=== PATIENT | male | born 1970 | race Caucasian/White ===

== ENCOUNTER 2024-07-06 18:51 | Inpatient (IN) | payer MEDICAID, OTHER ==
[~2024-07-06] VITALS: Ht 175.3 cm; Wt 100.6 kg
--- NOTE | 2024-07-06 19:10 | ED.PDOC ---
HPI Comments 54 y.o male with PMH of NJ, HTN, CVA, hyperlipidemia, CHF, and seizures, presents to the ED for a chief complaint of left sided chest pain radiating to his left arm and back, associated with SOB that started one hour prior to arrival. Patient reports pain presented sitting in the bus, described as sharp, constant, and rating a 10/10 on the pain scale. Patient mentions pain is similar to pain when he had an NJ. EMS reports patient took his own 324mg ASA prior to their arrival but had no relief. Patient is allergic to NTG so no medication was given en route. He denies any nausea, vomiting, diarrhea, fever, chills, leg swelling. No substance, alcohol or tobacco use reported. Time Seen by MD: 18:53 Reviewed Notes: Nurses Notes, Member Of Technical Staff Notes, Medications, Allergies Allergies: Coded Allergies: Acetaminophen (Verified Adverse Reaction, Severe, 07/06/24) Ibuprofen (Verified Adverse Reaction, Severe, 07/06/24) Ketorolac Tromethamine (Verified Adverse Reaction, Severe, 07/06/24) Nitroglycerin (Verified Adverse Reaction, Severe, 07/06/24) Oxycodone (Verified Adverse Reaction, Severe, 07/06/24) Penicillins (Verified Adverse Reaction, Severe, 07/06/24) Tramadol (Verified Adverse Reaction, Severe, 07/06/24) Information Source: Patient, Emergency Med Personnel Mode of Arrival: EMS Severity: Moderate Timing: Hours (1) Duration: Since onset Prehospital treatment: 12 Lead EKG, Predatory Game Hunter Location: Chest (L) Radiation: Arm (L) Quality: Sharp Onset: At Rest Cardiac Risk Factors: Hyperlipidemia, HTN PE Risk Factors: None History of: NJ Modifying Factors: Nothing Associated Signs and Symptoms: SOB Past Medical History PAST MEDICAL HISTORY: CHF, CVA, High Lipids, HTN, NJ, Seizures Surgical History: CABG, Pacemaker, PTCA Family History Family History: Family hx of heart diane Social History Smoker: Non-Smoker Alcohol: Denies ETOH Use Drugs: Denies Drug Use Lives In: Home Constitutional: denies: chills, diaphoresis, fatigue, fever, malaise, sweats, weakness, others EENTM: denies: blurred vision, double vision, ear bleeding, ear discharge, ear drainage, ear pain, ear ringing, eye pain, eye redness, hearing loss, mouth pain, mouth swelling, nasal discharge, nose bleeding, nose congestion, nose pain, photophobia, tearing, throat pain, throat swelling, voice changes, others Respiratory: reports: SOB at rest, shortness of breath, SOB with excertion; denies: cough, hemoptysis, orthopnea, stridor, wheezing, others Cardiovascular: reports: chest pain, left arm pain; denies: dizzy spells, diaphoresis, Dyspnea on exertion, edema, irregular heart beat, lightheadedness, palpitations, PND, syncope, others Gastrointestinal: denies: abdomen distended, abdominal pain, blood streaked bowels, constipated, diarrhea, dysphagia, difficulty swallowing, hematemesis, melena, nausea, poor appetite, poor fluid intake, rectal bleeding, rectal pain, vomiting, others Genitourinary: denies: burning, dysuria, flank pain, frequency, hematuria, incontinence, penile discharge, penile sore, pain, testicle pain, testicle swelling, urgency, others Neurological: denies: dizziness, fainting, headache, left sided numbness, left sided weakness, numbness, paresthesia, pre-existing deficit, right sided numbness, right sided weakness, seizure, speech problems, tingling, tremors, weakness, others Musculoskeletal: reports: back pain; denies: gout, joint pain, joint swelling, muscle pain, muscle stiffness, neck pain, others Integumetry: denies: bruises, change in color, change in hair/nails, dryness, laceration, lesions, lumps, rash, wounds, others Allergic/Immunocompromised: denies: Difficulty Healing, Frequent Infections, Hives, Itching, others Hematologic/Lymphatic: denies: anemia, blood clots, easy bleeding, easy bruising, swollen glands, others Endocrine: denies: excessive hunger, excessive sweating, excessive thirst, excessive urination, flushing, intolerance to cold, intolerance to heat, unexplained weight gain, unexplained weight loss, others Psychiatric: denies: anxiety, bipolar disorder, depression, hopeless, panic disorder, schizophrenia, sleepless, suicidal, others All Other Systems: Reviewed and Negative Physical Exam General Appearance: Moderate Distress HEENT: Normal ENT Inspection, Pharynx Normal, TMs Normal Neck: Full Range of Motion, Non-Tender, Normal, Normal Inspection Respiratory: Chest Non-Tender, Lungs Clear, No Accessory Muscle Use, No Respiratory Distress, Normal Breath Sounds Cardiovascular: No Edema, No JVD, No Murmur, No Gallop, Normal Peripheral Pulses, Regular Rate/Rhythm Breast Exam: Deferred Gastrointestinal: No Organomegaly, Non Tender, No Pulsatile Mass, Normal Bowel Sounds, Soft Genitalia: Deferred Pelvic: Deferred Rectal: Deferred Extremities: No calf tenderness, Normal capillary refill, Normal inspection, Normal range of motion, Non-tender, No pedal edema Musculoskeletal : Apperance: Normal Neurologic: Alert, red mud thickener operator II-XII nml as Tested, No Motor Deficits, Normal Affect, Normal Mood, No Sensory Deficits Cerebellar Function: Normal Reflexes: Normal Skin: Dry, Normal Color, Warm Lymphatic: No Adenopathy EKG EKG : Pulse Rate (adult): 74 Cardiac Rhythm: NSR Was a procedure done? Was a procedure done?: No CP Differential Dx Differential Diagnosis: NJ Differential Diagnosis: Angina, Chest Wall Pain, Cholelithiasis, Costochondritis, Gastritis, Myocardial Infarction, Pericarditis, Pulmonary Embolus X-Ray, Labs, Meds, VS Vital Signs Date Time Temp Pulse Resp B/P (MAP) Pulse Ox O2 Delivery O2 Flow Rate FiO2 07/06/24 21:22 71 13 132/78 07/06/24 20:34 72 16 138/43 07/06/24 20:04 73 17 145/91 07/06/24 19:54 72 07/06/24 19:45 73 17 145/91 (109) 97 07/06/24 19:45 73 17 97 Room Air* 0 21 07/06/24 19:12 98.5 77 18 145/95 (112) 96 07/06/24 19:10 74 07/06/24 18:52 74 Lab Test 07/06/24 21:04 07/06/24 20:01 07/06/24 19:14 Range/Units Urine Color Pending Urine Clarity Pending Urine pH Pending Urine Specific [place] Pending Urine Protein Pending Urine Ketones Pending Urine Blood Pending Urine Nitrite Pending Urine Bilirubin Pending Urine Urobilinogen Pending Urine Leukocyte Esterase Pending Urine RBC Pending Urine WBC Pending Urine Squamous Epithelial Cells Pending Urine Bacteria Pending Urine Glucose Pending Troponin I High Sensitivity 5 4 </=54 ng/L White Blood Count 4.8 4.4-10.8 10^3/uL Red Blood Count 4.75 4.5-5.90 10^6/uL Hemoglobin 11.1 L 13.5-17.5 g/dL Hematocrit 35.1 L 41.0-53.0 % Mean Corpuscular Volume 73.9 L 80.0-100.0 fL Mean Corpuscular Hemoglobin 23.4 L 28.0-32.0 pg Mean Corpuscular Hemoglobin Concent 31.7 L 32.0-36.0 g/dL Red Cell Distribution Width 19.7 H 11.8-14.3 % Platelet Count 208 140-450 10^3/uL Mean Platelet Volume 7.3 6.9-10.8 fL Neutrophils (%) (Auto) 61.9 37.0-80.0 % Lymphocytes (%) (Auto) 23.3 10.0-50.0 % Monocytes (%) (Auto) 11.1 0.0-12.0 % Eosinophils (%) (Auto) 3.1 0.0-7.0 % Basophils (%) (Auto) 0.6 0.0-2.0 % Neutrophils # (Auto) 3.0 1.6-8.6 10 ^3/uL Lymphocytes # (Auto) 1.1 0.4-5.4 10 ^3/uL Monocytes # (Auto) 0.5 0-1.3 10 ^3/uL Eosinophils # (Auto) 0.1 0-0.8 10 ^3/uL Basophils # (Auto) 0 0-0.2 10 ^3/uL Nucleated Red Blood Cells 0.2 % Sodium Level 139 136-145 mmol/L Potassium Level 4.2 3.5-5.1 mmol/L Chloride Level 106 98-107 mmol/L Carbon Dioxide Level 25 20-31 mmol/L Anion Gap 8 5-15 Blood Urea Nitrogen 13 9-23 mg/dL Creatinine 0.94 0.700-1.30 mg/dL Glomerular Filtration Rate Calc 97 >90 mL/min BUN/Creatinine Ratio 13.8 10.0-20.0 Serum Glucose 110 H 74-106 mg/dL Calcium Level 9.5 8.7-10.4 mg/dL Current Medications Medications (Trade) Dose Ordered Sig/[place] Route Start Time Stop Time Status Last Admin Morphine Sulfate 4 mg ONCE ONCE IV 07/06/24 19:00 07/06/24 19:03 DC 11/1/24 20:04 Ondansetron HCl (Zofran) 4 mg ONCE ONCE IV 07/06/24 19:00 07/06/24 19:03 DC 07/06/24 20:04 Morphine Sulfate 2 mg ONCE ONCE IV 07/06/24 21:15 07/06/24 21:16 DC 07/06/24 21:22 The chest x-ray is negative The patient had an IV Hep-Lock established. The patient was having some chest pain so was given morphine 4 mg IV push The patient was then given Zofran 4 mg IV push The patient is is now being given morphine 2 mg IV push for the pain The CBC shows a hemoglobin of 11.1 and hematocrit 35.1 The chemistry panel is within normal limits At this time, the patient will be admitted to the hospitalist A cardiology consult will be obtained. The patient states that his persistent chest pain was the same way that he had the pain last time when he had the NJ The patient is being admitted Images Reviewed?: Images reviewed and evaluated by me Time of 1ST Reevaluation: 19:05 Reevaluation 1ST: Unchanged Patient Education/Counseling: Diagnosis, Treatment, Prognosis Family Education/Counseling: No Family Present Departure 1 Departure Time of Disposition: 21:27 Impression: Primary Impression: Acute myocardial ischemia Disposition: ADMITTED INPATIENT Admit to: [facility] Condition: Fair Critical Care Note Critical Care Time?: No Stability Stability form required: Yes Unstable for transfer: Telemetry monitoring (Telemetry monitoring required), ED Physician Assesment (Clinical assesment) Heart Score Heart Score: Heart Score Response (Comments) Value History Highly Suspicious 2 EKG Repolarization Disturb 1 Age 45-64 1 Risk Factors >3 or Hx ASHD 2 Troponin Normal limit 0 Total 6 I personally scribed for GIOVANNY PATEL MD ([email or web address]) on 07/06/24 at 19:10. Electronically submitted by Christina Peterson ([facility]). GIOVANNY PATEL MD Jul 06, 2024 19:10
[2024-07-06 19:29] LABS: Basophils # (auto) 0 10 ^3/uL (0-0.2); Basophils % (auto) 0.6 % (0.0-2.0); Eosinophils # (auto) 0.1 10 ^3/uL (0-0.8); Eosinophils % (auto) 3.1 % (0.0-7.0); Hematocrit 35.1 % (41.0-53.0); Hemoglobin 11.1 g/dL (13.5-17.5); Lymphocytes # (auto) 1.1 10 ^3/uL (0.4-5.4); Lymphocytes % (auto) 23.3 % (10.0-50.0); Mean Corpuscular Hemoglobin 23.4 pg (28.0-32.0); Mean Corpuscular Hgb Conc. 31.7 g/dL (32.0-36.0); Mean Corpuscular Volume 73.9 fL (80.0-100.0); Monocytes # (auto) 0.5 10 ^3/uL (0-1.3); Monocytes % (auto) 11.1 % (0.0-12.0); Neutrophils % (auto) 61.9 % (37.0-80.0); Nucleated Red Blood Cells % 0.2 %; Platelet Count (auto) 208 10^3/uL (140-450); Red Blood Cells 4.75 10^6/uL (4.5-5.90); Red Cell Distribution Width 19.7 % (11.8-14.3); White Blood Cell 4.8 10^3/uL (4.4-10.8)
[2024-07-06 19:40] LABS: Chloride 106 mmol/L (98-107); Potassium 4.2 mmol/L (3.5-5.1); Sodium 139 mmol/L (136-145)
[2024-07-06 19:41] LABS: Anion Gap 8 (5-15); Carbon Dioxide 25 mmol/L (20-31)
[2024-07-06 19:42] LABS: Calcium 9.5 mg/dL (8.7-10.4)
[2024-07-06 19:45] VITALS: PULSE 73; RESP 17; O2SAT 97
[2024-07-06 19:47] LABS: BUN/Creatinine Ratio 13.8 (10.0-20.0); Blood Urea Nitrogen 13 mg/dL (9-23); Glucose 110 mg/dL (74-106)
[2024-07-06] MEDS: MORPHINE SULFATE 4 MG/ML SYR/VIAL IV ONE (20:04)
[2024-07-06] MEDS: ONDANSETRON HCL 4 MG/2 ML VIAL IV ONE (20:04)
--- NOTE | 2024-07-06 20:47 | DVH ---
CHEST RADIOGRAPH Indication:pain Technique: Single frontal view of the chest was obtained Comparison: None FINDINGS: Lines and Tubes: None Lungs: No focal consolidation. Pleura: No effusion. No pneumothorax. Cardiomediastinal contours: Mild cardiomegaly. Coronary artery stent is noted. Midline sternotomy wir es with surgical clips consistent with prior history of CABG. Left-sided approach dual lead pacemaker terminating within right atrium and right ventricle. Additional 3.5 cm linear density overlies the c ardiac silhouette. Bones: No acute osseous abnormality. IMPRESSION: No acute cardiopulmonary disease. Mild cardiomegaly.
[2024-07-06] MEDS: MORPHINE SULFATE INJ 2 MG/ml SYRG IV ONE (21:22)
[2024-07-06 21:24] LABS: Urine Bacteria None Seen /hpf (None Seen)
[2024-07-06 21:36] LABS: Urine Blood Negative /uL (Negative); Urine Clarity Clear (Clear); Urine Color Light-Yellow (Yellow); Urine Protein, UAD Negative (Negative); Urine Specific Gravity 1.022 (1.001-1.035); Urine Urobilinogen 3 mg/dL (Negative); Urine WBC 1 /hpf (0 - 3); Urine pH 7.5 (5.0-9.0)
[2024-07-06] MEDS ORDERED: hydrALAZINE HCL 20 MG/ML VL IV PRN (22:30)
[2024-07-06] MEDS ORDERED: DOCUSATE SOD 100 MG CAP PO PRN (22:30)
[2024-07-06] MEDS ORDERED: ONDANSETRON HCL 4 MG/2 ML VIAL IV PRN (22:30)
[2024-07-06] MEDS: SODIUM CHLORIDE 0.9% 1,000 ML IV SCH (22:33)
--- NOTE | 2024-07-06 22:41 | DVHHP2 ---
History of Present Illness Reason for Visit: Acute chest pain History of Present Illness The patient is a 54-year-old male with past medical history of CVA, CHF, hyperlipidemia, MD, seizures, and hypertension who presented to [facility] ED with complaint of chest pain. Patient reports symptoms progressively get worse with left-sided chest pain, radiating to his left, back, associated with shortness of breaths, SOB at rest, shortness of breath with exertion, getting worse that prompted this visit. Patient was seen and evaluated in the ED, laboratory data shows WBC 4.8, hemoglobin 11.1, hematocrit 35.1, platelets 208, sodium 139, potassium 4.2, BUN 13, creatinine 0.94, glucose 110, troponin 4, blood pressure 132/78, heart rate 72, temperature 98.5 F, O2 saturation 97% on oxygen. Chest x-ray shows no acute cardiopulmonary disease, mild cardiomegaly. Patient took his own 324mg ASA prior to their arrival, please see medication orders section in the computer. On my assessment, patient denies chest pain at this moment, no headache, no dizziness, no diaphoresis, currently on oxygen, no nausea, no vomiting, no fever, no chills. Patient was admitted for further evaluation and medical management. Past Medical History CHF, CVA, High Lipids, HTN, MD, Seizures Past Surgical History CABG, Pacemaker, PTCA Family History Reviewed, noncontributory to the management of this case. Past Social History The patient lives at home, denies smoking, alcohol or illicit drugs abuse. Review of Systems Constitutional: Yes: Weakness; No: Fever, Chills, Sweats, Malaise, Other Eyes: No: Pain, Vision change, Conjunctivae inflammation, Eyelid inflammation, Other, Redness ENT: No: Ear pain, Ear discharge, Nose pain, Nose discharge, Nose congestion, Mouth pain, Mouth swelling, Throat pain, Throat swelling, Other Respiratory: Shortness of breath, SOB with excertion, Other (SOB at rest); No: Cough, Dry, Wheezing, Hemoptysis, Pleuritic Pain, Sputum, Wheezing Cardiovascular: Chest Pain; No: Palpitations, Orthopnea, Paroxysmal Noc. Dyspnea, Edema, Lt Headedness, Other Gastrointestinal: No: Nausea, Vomiting, Abdominal Pain, Diarrhea, Constipation, Melena, Hematochezia, Other Genitourinary: No Dysuria, No Frequency, No Incontinence, No Hematuria, No Retention, No Other Musculoskeletal: No: other, neck pain, shoulder pain, arm pain, back pain, hand pain, leg pain, foot pain Skin: No: Rash, Lesions, Jaundice, Bruising, Other Neurological: No: Weakness, Numbness, Incoordination, Change in speech, Co nfusion, Seizures, Other Allergies: Coded Allergies: Oatmeal (Unverified Allergy, Unknown, 07/07/24) Acetaminophen (Verified Adverse Reaction, Severe, 07/06/24) Ibuprofen (Verified Adverse Reaction, Severe, 07/06/24) Ketorolac Tromethamine (Verified Adverse Reaction, Severe, 07/06/24) Nitroglycerin (Verified Adverse Reaction, Severe, 07/06/24) Oxycodone (Verified Adverse Reaction, Severe, 07/06/24) Penicillins (Verified Adverse Reaction, Severe, 07/06/24) Tramadol (Verified Adverse Reaction, Severe, 07/06/24) Uncoded Allergies: Broccoli (food) (Allergy, Unknown, 07/07/24) cauliflower (food) (Allergy, Unknown, 07/07/24) Medications Current Medications Medications Dose Ordered Sig/[place] Route Start Time Stop Time Status Last Admin Dose Admin Carvedilol 3.125 mg Q12HR PO 07/07/24 10:00 Aspirin 81 mg DAILY PO 07/07/24 10:00 Atorvastatin Calcium 10 mg HS PO 07/07/24 22:00 Sodium Chloride 1,000 ml @ 60 mls/hr [id number] IV 07/06/24 22:30 07/06/24 22:33 60 MLS/HR Ondansetron HCl 4 mg Q4HP PRN IV 07/06/24 22:30 Docusate Sodium 100 mg BIDPRN PRN PO 07/06/24 22:30 Hydralazine HCl 10 mg Q6HP PRN IV 07/06/24 22:30 Exam Vital Signs Vital Signs Date Time Temp Pulse Resp B/P (MAP) Pulse Ox O2 Delivery O2 Flow Rate FiO2 07/06/24 22:00 63 16 134/80 (98) 99 07/06/24 19:45 Room Air* 0 21 07/06/24 19:12 98.5 General Appearance: Alert, Oriented X3, Cooperative, No acute distress HEENT: Atraumatic, PERRLA, EOMI, Mucous membr. moist/pink Respiratory: Clear to auscultation, Normal air movement Cardiovascular: Regular rate, Normal S1, Normal S2, No murmurs Abdominal: Normal bowel sounds, Soft, No tenderness, No hepatospenomegaly, No masses Extremities: No clubbing, No cyanosis, No edema, Normal pulses, No tenderness/swelling Skin: No rashes, No breakdown, No significant lesion Neuro: Normal speech, Normal tone, Sensation intact, Cranial nerves 3-12 NL, Reflexes 2+, Other (Generalized weakness) Psych/Mental Status: Mental status NL, Mood NL Labs/Xrays Labs Test 07/06/24 21:04 07/06/24 20:01 07/06/24 19:14 Range/Units Urine Color Light-yellow Yellow Urine Clarity Clear Clear Urine pH 7.5 5.0-9.0 Urine Specific [place] 1.022 1.001-1.035 Urine Protein Negative Negative Urine Ketones Negative Negative Urine Blood Negative Negative /uL Urine Nitrite Negative Negative Urine Bilirubin Negative Negative Urine Urobilinogen 3 H Negative mg/dL Urine Leukocyte Esterase Negative Negative /uL Urine RBC 2 0 - 3 /hpf Urine WBC 1 0 - 3 /hpf Urine Squamous Epithelial Cells Few <5 /hpf Urine Bacteria None seen None Seen /hpf Urine Glucose Normal Normal mg/dL Troponin I High Sensitivity 5 </=54 ng/L White Blood Count 4.8 4.4-10.8 10^3/uL Red Blood Count 4.75 4.5-5.90 10^6/uL Hemoglobin 11.1 L 13.5-17.5 g/dL Hematocrit 35.1 L 41.0-53.0 % Mean Corpuscular Volume 73.9 L 80.0-100.0 fL Mean Corpuscular Hemoglobin 23.4 L 28.0-32.0 pg Mean Corpuscular Hemoglobin Concent 31.7 L 32.0-36.0 g/dL Red Cell Distribution Width 19.7 H 11.8-14.3 % Platelet Count 208 140-450 10^3/uL Mean Platelet Volume 7.3 6.9-10.8 fL Neutrophils (%) (Auto) 61.9 37.0-80.0 % Lymphocytes (%) (Auto) 23.3 10.0-50.0 % Monocytes (%) (Auto) 11.1 0.0-12.0 % Eosinophils (%) (Auto) 3.1 0.0-7.0 % Basophils (%) (Auto) 0.6 0.0-2.0 % Neutrophils # (Auto) 3.0 1.6-8.6 10 ^3/uL Lymphocytes # (Auto) 1.1 0.4-5.4 10 ^3/uL Monocytes # (Auto) 0.5 0-1.3 10 ^3/uL Eosinophils # (Auto) 0.1 0-0.8 10 ^3/uL Basophils # (Auto) 0 0-0.2 10 ^3/uL Nucleated Red Blood Cells 0.2 % Sodium Level 139 136-145 mmol/L Potassium Level 4.2 3.5-5.1 mmol/L Chloride Level 106 98-107 mmol/L Carbon Dioxide Level 25 20-31 mmol/L Anion Gap 8 5-15 Blood Urea Nitrogen 13 9-23 mg/dL Creatinine 0.94 0.700-1.30 mg/dL Glomerular Filtration Rate Calc 97 >90 mL/min BUN/Creatinine Ratio 13.8 10.0-20.0 Serum Glucose 110 H 74-106 mg/dL Calcium Level 9.5 8.7-10.4 mg/dL PATIENT: SHERIF NGO ACCT: [id number] UNIT: [id number] : 1970 LOC: ER ROOM / BED: / AGE / SEX: 54 / M ADM STATUS: REG ER SERVICE 1900 ORDERING PHYSICIAN: GIOVANNY PATEL MD PROCEDURE(s): CXRP - CHEST PORTABLE REASON: pain ORDER NUMBER(s): [id number], ACCESSION NUMBER(s): [id number] CHEST RADIOGRAPH Indication:pain Technique: Single frontal view of the chest was obtained Comparison: None FINDINGS: Lines and Tubes: None Lungs: No focal consolidation. Pleura: No effusion. No pneumothorax. Cardiomediastinal contours: Mild cardiomegaly. Coronary artery stent is noted. Midline sternotomy wires with surgical clips consistent with prior history of CABG. Left-sided approach dual lead pacemaker terminating within right atrium and right ventricle. Additional 3.5 cm linear density overlies the cardiac silhouette. Bones: No acute osseous abnormality. IMPRESSION: No acute cardiopulmonary disease. Mild cardiomegaly. Assessment/Plan Assessment/Plan Generalized weakness Acute myocardial ischemia Plan 1. Admit to telemetry unit 2. Breathing treatment 3. Pain control management 4. Management of fluids and electrolytes 5. Consultation for hospitalist 6. Diagnostic tests chest x-ray 7. DVT prophylaxis-on aspirin 8. Repeat labs CBC, CMP in a.m. 9. Continue with current medical management 10. Treatment plan discussed with patient and RN. Patient verbalized underst anding. Plan discussed with: Patient, Other (RN) My Orders Orders - DONN SILVESTRE DNP Procedure Category Date Status Time Carvedilol Tablet PHA 07/07/24 In Process (Coreg Tablet) 10:00 Aspirin Tablet PHA 07/07/24 In Process 10:00 Atorvastatin (Lipitor) PHA 07/07/24 In Process 22:00 Allergies SONALI 07/06/24 In Process 22:16 Code Status CODE 07/06/24 Transmitted 22:16 Sodium Chloride 0.9% PHA 07/06/24 In Process 22:30 Oxygen Per Hour RT 07/06/24 Transmitted 22:16 Ondansetron Hcl PHA 07/06/24 In Process (Zofran) 22:30 Docusate Sodium PHA 07/06/24 In Process Capsule (Colace 22:30 Fall Risk Precautions SONALI 07/06/[address] 22:16 Complete Blood Count LAB 07/07/24 Verified 04:00 Comprehensive LAB 07/07/24 Verified Metabolic Panel 04:00 Cardiac DIET 07/07/24 Transmitted Diet-2gna,Lofat,Lochol Breakfast Condition: Serious SONALI 07/06/24 In Process 22:16 Sequential SONALI 07/06/24 In Process Compression Device Hydralazine Injection PHA 07/06/24 In Process (Apresoline Inject 22:30 Problem List: (1) Generalized weakness (2) Acute myocardial ischemia Date of Service: Jul 06, 2024 Billing Provider: DONN SILVESTRE DNP Common Visit Codes: 19585-HDRULHU INP/OBS CARE (HIGH) DONN SILVESTRE DNP Jul 06, 2024 22:41
[2024-07-06] MEDS ORDERED: NITROGLYCERIN 0.4 MG SL TAB SL PRN (22:45)
[2024-07-07] MEDS: HYDROmorphone HCL 2 MG/ML VL/or syr IV ONE ×2 (01:01→05:17)
[2024-07-07] MEDS: LORazepam 2MG/ML-1ML VIAL IV PRN (01:01)
--- NOTE | 2024-07-07 01:34 | ECG ---
[facility] Test Date: 2024-07-06 Test Time: 21:50:53 Pat Name: SHERIF NGO Department: ER Room: [address] [place] [address] Gender: M Shipping Assistant: ETIENNE : 1970 Requested By: GIOVANNY PATEL Order Number: [id number] Reading MD: Sy Hightower Measurements Intervals [place] Rate: 65 P: 33 [place]: 149 QRS: 48 QRSD: 105 T: 42 QT: 440 QTc: 458 Interpretive Statements Sinus rhythm Inferior infarct, old Electronically Signed On 07-12-2024 10:11:04 PST by Sy Hightower Please click the below link to view image of tracing.
--- NOTE | 2024-07-07 01:34 | ECG ---
[facility] Test Date: 2024-07-06 Test Time: 19:54:25 Pat Name: SHERIF NGO Department: ER Room: [address] [place] [address] Gender: M International Accountant: ETIENNE : 1970 Requested By: GIOVANNY PATEL Order Number: [id number] Reading MD: Sy Hightower Measurements Intervals [place] Rate: 72 P: 46 IA: 153 QRS: 59 QRSD: 107 T: 51 QT: 408 QTc: 447 Interpretive Statements Sinus rhythm Abnormal inferior Q waves Electronically Signed On 07-12-2024 10:10:44 PST by Sy Hightower Please click the below link to view image of tracing.
--- NOTE | 2024-07-07 01:35 | ECG ---
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
[2024-07-07 02:42] VITALS: BP 124/71; PULSE 70; RESP 18; TEMP 98; O2SAT 94
[2024-07-07] MEDS ORDERED: ATOR20TA PO (03:20)
[2024-07-07] MEDS ORDERED: FURO1TAB31 PO (03:20)
[2024-07-07] MEDS ORDERED: DIVA-93 PO (03:20)
[2024-07-07] MEDS ORDERED: APIX2.5T PO (03:20)
[2024-07-07] MEDS ORDERED: ASPI-543 PO (03:20)
[2024-07-07] MEDS ORDERED: LISI10TA34 PO (03:20)
[2024-07-07] MEDS ORDERED: PHEN1CAP38 PO (03:20)
[2024-07-07 05:00] VITALS: BP 131/74; PULSE 64; RESP 18; TEMP 97.6; O2SAT 95
[2024-07-07] MEDS: PHENYTOIN SODIUM 100 MG CAP PO SCH (05:56)
[2024-07-07 06:11] LABS: Basophils # (auto) 0 10 ^3/uL (0-0.2); Eosinophils # (auto) 0.2 10 ^3/uL (0-0.8); Monocytes # (auto) 0.6 10 ^3/uL (0-1.3)
[2024-07-07 06:13] LABS: Basophils % (auto) 0.8 % (0.0-2.0); Eosinophils % (auto) 3.7 % (0.0-7.0); Hematocrit 33.3 % (41.0-53.0); Hemoglobin 10.7 g/dL (13.5-17.5); Lymphocytes # (auto) 1.7 10 ^3/uL (0.4-5.4); Lymphocytes % (auto) 32.8 % (10.0-50.0); Mean Corpuscular Hgb Conc. 32.2 g/dL (32.0-36.0); Mean Corpuscular Volume 74.6 fL (80.0-100.0); Monocytes % (auto) 12.4 % (0.0-12.0); Neutrophils # (auto) 2.6 10 ^3/uL (1.6-8.6); Neutrophils % (auto) 50.3 % (37.0-80.0); Nucleated Red Blood Cells % 0.1 %; Platelet Count (auto) 189 10^3/uL (140-450); Red Blood Cells 4.46 10^6/uL (4.5-5.90); Red Cell Distribution Width 19.3 % (11.8-14.3); White Blood Cell 5.1 10^3/uL (4.4-10.8)
[2024-07-07 06:35] LABS: Alanine Aminotransferase < 9 U/L (7-40); Alkaline Phosphatase 147 U/L (46-116); Anion Gap 7 (5-15); Aspartate Aminotransferase < 8 U/L (13-40); BUN/Creatinine Ratio 11.4 (10.0-20.0); Bilirubin, Total < 0.2 mg/dL (0.2-1.0); Blood Urea Nitrogen 10 mg/dL (9-23); Calcium 8.9 mg/dL (8.7-10.4); Carbon Dioxide 25 mmol/L (20-31); Chloride 107 mmol/L (98-107); Glucose 103 mg/dL (74-106); Potassium 3.9 mmol/L (3.5-5.1); Sodium 139 mmol/L (136-145); Total Protein 6.1 g/dL (5.7-8.2)
[2024-07-07 08:00] VITALS: PULSE 61; PULSE 87; RESP 19; O2SAT 92
[2024-07-07 09:29] VITALS: BP 102/67; PULSE 60; RESP 16; TEMP 97.7; O2SAT 96
[2024-07-07] MEDS ORDERED: CARVEDILOL 3.125 MG TAB PO SCH (10:00)
[2024-07-07] MEDS: ASPirin 81 mg TAB PO SCH (10:00)
--- NOTE | 2024-07-07 10:09 | DVHINCON2 ---
Date Seen: Jul 07, 2024 Referring Physician Elizabeth Reason for Consultation Chest Pain History of Present Illness 54-year-old male with PMH for CAD with multiple stents to LAD, 2 vessel CABG, HTN, paroxysmal atrial fibrillation on Eliquis, chronic HFpEF, HLD, seizure disorder, COPD, bradycardia s/p ppm, and CVA with left-sided minor residual deficits presents to the hospital with palpitation and chest pain. Patient st ates that he was on a bus on his way back to [place] from [place] when he had sudden onset of heavy palpitations followed by retrosternal chest pain, constant, pressure and sharp in nature, radiating towards left side. Troponins trending negative. CXR negative for acute cardiopulmonary disease. EKG reviewed and shows normal sinus rhythm at 65 beats per minute, no acute ST abnormality noted. Past Medical History CAD s/p multiple stents to LAD (06/2023) 2V CABG (01/2023) Paroxysmal atrial fibrillation on Xarelto Bradycardia s/p dual-chamber ppm COPD Epilepsy HTN HLD Diastolic heart failure TX Stroke with left-sided deficits Past Surgical History Coronary angiogram S SP PCI with BHUPENDRA to LAD 06/2023 2V CABG 01/2023 Family History: Patient reports no known family medical history. Family History Denies pertinent family cardiac history Social History Denies tobacco, alcohol, or illicit drug use. Allergies: Coded Allergies: Hydrocodone (Verified Allergy, Unknown, 07/07/24) Oatmeal (Unverified Allergy, Unknown, 07/07/24) Acetaminophen (Verified Adverse Reaction, Severe, 07/06/24) Ibuprofen (Verified Adverse Reaction, Severe, 07/06/24) Ketorolac Tromethamine (Verified Adverse Reaction, Severe, 07/06/24) Nitroglycerin (Verified Adverse Reaction, Severe, 07/06/24) Oxycodone (Verified Adverse Reaction, Severe, 07/06/24) Penicillins (Verified Adverse Reaction, Severe, 07/06/24) Tramadol (Verified Adverse Reaction, Severe, 07/06/24) Uncoded Allergies: Broccoli (food) (Allergy, Unknown, 07/07/24) cauliflower (food) (Allergy, Unknown, 07/07/24) Home Meds Reported Medications Lisinopril (Lisinopril) 10 Mg Tab, 10 MG PO DAILY for 30 Days, MG 07/07/24 Phenytoin Sodium (DILANTIN CAPSULE) 100 Mg Cp, 200 MG PO for 30 Days 07/07/24 Divalproex Sodium (Depakote Er) 500 Mg Tab, 1 TAB PO BID, #60 TAB 2 Refills 07/07/24 Furosemide (Lasix) 40 Mg Tab, 40 MG PO, TAB 07/07/24 Apixaban Base (ELIQUIS) 2.5 Mg Tab, 2.5 MG PO BID, TAB 07/07/24 Aspirin (Aspir-Low) 81 Mg Tab, 81 MG PO DAILY for 30 Days, MG 07/07/24 Atorvastatin Calcium (Lipitor) 20 Mg Tab, 1 TAB PO DAILY, #90 TAB 1 Refill 07/07/24 Current Medications Current Medications Medications (Trade) Dose Ordered Sig/[place] Route PRN Reason Start Time Stop Time Status Last Admin Carvedilol (Coreg Tablet) 3.125 mg Q12HR PO 07/07/24 10:00 Aspirin 81 mg DAILY PO 07/07/24 10:00 Atorvastatin Calcium (Lipitor) 10 mg HS PO 07/07/24 22:00 Sodium Chloride 1,000 ml @ 60 mls/hr [id number] IV 07/06/24 22:30 07/06/24 22:33 Ondansetron HCl (Zofran) 4 mg Q4HP PRN IV NAUSEA / VOMITING 07/06/24 22:30 Docusate Sodium (Colace Capsule) 100 mg BIDPRN PRN PO FOR CONSTIPATION 07/06/24 22:30 Hydralazine HCl (Apresoline Injection) 10 mg Q6HP PRN IV SBP>150 07/06/24 22:30 Nitroglycerin (Ntrostat Sublingual) 0.4 mg Q5MINP PRN SL FOR CHEST PAIN 07/06/24 22:45 Lorazepam (Ativan Inj) 1 mg Q2HP PRN IV SEIZURES 07/07/24 00:45 Phenytoin Sodium (Dilantin Capsule) 200 mg Q8HR PO 07/07/24 06:00 Divalproex Sodium (Depakote "Dr" Tablet) 500 mg BID PO 07/07/24 10:00 Review of Systems Constitutional: No: Fever, Chills, Sweats, Weakness, Malaise, Other Eyes: No: Pain, Vision change, Conjunctivae inflammation, Eyelid inflammation, Other, Redness ENT: No: Ear pain, Ear discharge, Nose pain, Nose discharge, Nose congestion, Mouth pain, Mouth swelling, Throat pain, Throat swelling, Other Respiratory: No: Cough, Dry, Shortness of breath, SOB with exertion, Wheezing, Hemoptysis, Pleuritic Pain, Sputum, Wheezing, Other Cardiovascular: ; No: Palpitations, Orthopnea, Paroxysmal Noc. Dyspnea, Edema, Lt Headedness, Other positive: Chest Pain Gastrointestinal: No: Nausea, Vomiting, Abdominal Pain, Diarrhea, Constipation, Melena, Hematochezia, Other Genitourinary: No Dysuria, No Frequency, No Incontinence, No Hematuria, No Retention, No Other Musculoskeletal: neck pain; No: other, shoulder pain, arm pain, back pain, hand pain, leg pain, foot pain Skin: No: Rash, Lesions, Jaundice, Bruising, Other Neurological: Other (Dizziness, headache.); No: , Numbness, Incoordination, Change in speech, Confusion, Seizures positive: Residual left-sided Weakness Vital Signs Vital Signs Date Time Temp Pulse Resp B/P (MAP) Pulse Ox O2 Delivery O2 Flow Rate FiO2 07/07/24 05:47 60 19 122/65 07/07/24 05:00 97.6 95 97.6 07/07/24 02:42 Room Air* 0 21 Physical Exam General appearance: Patient is well-developed, well-nourished, in no acute distress. HEENT: Exam shows: Normocephalic, atraumatic, PERRLA, EOMI Neck: Supple, no bruits Chest: Equal chest excursion bilaterally. Breath sounds diminished. Heart: Rhythm: Regular rate;/paced no murmur or gallop Abdomen: Exam shows: Soft, nontender, nondistended Musculoskeletal: No clubbing, no cyanosis, + lower extremity edema Dermatology: Skin warm, moist. Neurological: Exam shows: Alert and oriented x4, normal speech Available prior records, labs, EKG, rhythm strips reviewed and interpreted Labs/Diagnostic Data Labs Test 07/07/24 05:25 07/06/24 21:04 07/06/24 20:01 Range/Units White Blood Count 5.1 4.4-10.8 10^3/uL Red Blood Count 4.46 L 4.5-5.90 10^6/uL Hemoglobin 10.7 L 13.5-17.5 g/dL Hematocrit 33.3 L 41.0-53.0 % Mean Corpuscular Volume 74.6 L 80.0-100.0 fL Mean Corpuscular Hemoglobin 24.0 L 28.0-32.0 pg Mean Corpuscular Hemoglobin Concent 32.2 32.0-36.0 g/dL Red Cell Distribution Width 19.3 H 11.8-14.3 % Platelet Count 189 140-450 10^3/uL Mean Platelet Volume 7.7 6.9-10.8 fL Neutrophils (%) (Auto) 50.3 37.0-80.0 % Lymphocytes (%) (Auto) 32.8 10.0-50.0 % Monocytes (%) (Auto) 12.4 H 0.0-12.0 % Eosinophils (%) (Auto) 3.7 0.0-7.0 % Basophils (%) (Auto) 0.8 0.0-2.0 % Neutrophils # (Auto) 2.6 1.6-8.6 10 ^3/uL Lymphocytes # (Auto) 1.7 0.4-5.4 10 ^3/uL Monocytes # (Auto) 0.6 0-1.3 10 ^3/uL Eosinophils # (Auto) 0.2 0-0.8 10 ^3/uL Basophils # (Auto) 0 0-0.2 10 ^3/uL Nucleated Red Blood Cells 0.1 % Sodium Level 139 136-145 mmol/L Potassium Level 3.9 3.5-5.1 mmol/L Chloride Level 107 98-107 mmol/L Carbon Dioxide Level 25 20-31 mmol/L Anion Gap 7 5-15 Blood Urea Nitrogen 10 9-23 mg/dL Creatinine 0.88 0.700-1.30 mg/dL Glomerular Filtration Rate Calc 103 >90 mL/min BUN/Creatinine Ratio 11.4 10.0-20.0 Serum Glucose 103 74-106 mg/dL Calcium Level 8.9 8.7-10.4 mg/dL Total Bilirubin < 0.2 L 0.2-1.0 mg/dL Aspartate Amino Transferase (AST) < 8 L 13-40 U/L Alanine Aminotransferase (ALT) < 9 7-40 U/L Alkaline Phosphatase 147 H 46-116 U/L Total Protein 6.1 5.7-8.2 g/dL Albumin 4.0 3.2-4.8 g/dL Urine Color Light-yellow Yellow Urine Clarity Clear Clear Urine pH 7.5 5.0-9.0 Urine Specific [place] 1.022 1.001-1.035 Urine Protein Negative Negative Urine Ketones Negative Negative Urine Blood Negative Negative /uL Urine Nitrite Negative Negative Urine Bilirubin Negative Negative Urine Urobilinogen 3 H Negative mg/dL Urine Leukocyte Esterase Negative Negative /uL Urine RBC 2 0 - 3 /hpf Urine WBC 1 0 - 3 /hpf Urine Squamous Epithelial Cells Few <5 /hpf Urine Bacteria None seen None Seen /hpf Urine Glucose Normal Normal mg/dL Troponin I High Sensitivity 5 </=54 ng/L Assessment (Dr. Walton) * Chest Pain - troponin negative. EKG negative for acute ischemic changes. Coronary angiogram on 02/13/2024 showing patent SVG to diagonal graft, patent LAD stents, normal left circumflex and RCA with minimal irregularities. Continue medical management. Resume aspirin, statin, and Ranexa. Patient refusing beta-trent due to previous hypotension even and heart rate even though patient now has ppm. * CAD S/P 2V CABG and Multiple BHUPENDRA PCI to LAD - continue aspirin and statin. * HLD - statin * HTN - continue lisinopril as patient does not want any beta-blockers. * Presence of Dual Chamber PPM - seems normal functioning on telemetry. * Chronic HFpEF - continue home dose p.o. Lasix 40 mg daily * Hx CVA with left sided residual weakness - continue aspirin and statin. * Paroxysmal Atrial Fibrillation - normal sinus rhythm on telemetry. Continue Eliquis. Case Discussed with Dr Walton. There is no further cardiac work-up indicated at this time. Thank you for allowing us to participate in this patient's care. Will sign off. Critical care, time spent: 48 minutes This medical document was created using an electronic medical record system with voice recognition software and computerized dictation system. Although this document has been carefully reviewed, there might still be some phonetic and typographical errors. Occasional wrong-word or ``sound-alike substitutions may have occurred due to the inherent limitations of voice recognition software. These areas are purely typographical due to imperfections of the software programs and do not reflect any compromise in the patient's medical care. Please read the chart carefully and recognize, using context, where these substitutions have occurred. The treatment plan was discussed with and agreed upon by patient/family including requesting consultants and ordering of imaging/procedures. Plan discussed with: Patient Date of Service: Jul 07, 2024 Billing Provider: ELOY WALTON MD Cardiology Common Codes: [id number] INP/OBS CARE (High), [id number] CARE 30-74 MIN RAVI MEZA AGACN Jul 07, 2024 10:09
[2024-07-07] MEDS: RANOLAZINE ER 500 MG TAB PO ONE (10:15)
[2024-07-07] MEDS: FUROSEMIDE 20 MG TAB PO ONE (10:15)
[2024-07-07] MEDS ORDERED: HYDROcodone-ACET 5/325MG TAB PO PRN (10:30)
[2024-07-07] MEDS: LISINOPRIL 20 MG TAB PO ONE (12:34)
[2024-07-07 12:36] VITALS: BP 133/77; PULSE 71; RESP 17
[2024-07-07] MEDS: MORPHINE SULFATE INJ 2 MG/ml SYRG IV PRN (12:36)
--- NOTE | 2024-07-07 13:21 | DVHSR ---
APPROVED REPORT EXAM: Two-dimensional and M-mode echocardiogram with Doppler and color Doppler. Blood Pressure: 122/65 mmHg INDICATION Chest Pain RISK FACTORS Height: 5' 9", Weight: 221 DIMENSIONS LVDd5.3 (3.8-5.7cm)LA (2D)4.4 (1.9-4.0cm)Aortic Root4.0 (2.0-3.7cm) LVDs3.8 (2.5-4.0cm)LA (MM) (1.9-4.0cm)Aortic Cusp Exc2.2 (1.5-2.0cm) EF (%) 55.0 (55-70%)Rt. Atrium4.8 (1.9-4.0cm)Asc. Aorta cm IVSd1.1 (0.7-1.1cm)RV (D) (1.8-2.4cm) PWd1.0 (0.7-1.1cm) Mitral Valve MitralMitral Stenosis E wave0.90m/sMV Mean GR.mmHg A wave0.40m/sMV Peak GR.mmHg E/A ratio2.32D MVAcm2 Aortic Valve Aortic ValveAortic Stenosis V10.70m/Yasmin Mean GR.3mmHg V21.10m/Yasmin Peak GR.5mmHg LVOT Diameter2.5 (1.8-2.4cm)Doppler AVA3.12cm2 Pulmonic Valve V20.70m/s Tricuspid Valve TR Velocity2.10m/s [id number] Conclusion Normal left ventricular Size and dimension. Normal left ventricular systolic function estimated ejec tion fraction 55%. There is normal diastolic dysfunction. Normal right ventricular size and dimension. Normal right ventricular systolic function. Pacemaker lead is seen in the right ventricular cavity. Normal biatrial size and dimension. Normal aortic valve structure and function. Normal mitral valve structure and. Normal tricuspid valve structure and function. The pulmonary valve is grossly normal. No pericardial effusion.
[2024-07-07] MEDS ORDERED: APIXABAN 5 MG TAB PO SCH (22:00)
[2024-07-07] MEDS ORDERED: RANOLAZINE ER 500 MG TAB PO SCH (22:00)
[2024-07-07] MEDS ORDERED: ATORVASTATIN 20 MG TAB PO SCH (22:00)
--- NOTE | 2024-07-07 22:26 | DVHDS2 ---
Discharge Summary Date of Admission Jul 06, 2024 at 22:39 Date of Discharge: Jul 07, 2024 Labs/Diagnostic Data: Laboratory Results Test 07/07/24 05:25 07/06/24 21:04 07/06/24 20:01 White Blood Count 5.1 10^3/uL (4.4-10.8) Red Blood Count 4.46 10^6/uL (4.5-5.90) Hemoglobin 10.7 g/dL (13.5-17.5) Hematocrit 33.3 % (41.0-53.0) Mean Corpuscular Volume 74.6 fL (80.0-100.0) Mean Corpuscular Hemoglobin 24.0 pg (28.0-32.0) Mean Corpuscular Hemoglobin Concent 32.2 g/dL (32.0-36.0) Red Cell Distribution Width 19.3 % (11.8-14.3) Platelet Count 189 10^3/uL (140-450) Mean Platelet Volume 7.7 fL (6.9-10.8) Neutrophils (%) (Auto) 50.3 % (37.0-80.0) Lymphocytes (%) (Auto) 32.8 % (10.0-50.0) Monocytes (%) (Auto) 12.4 % (0.0-12.0) Eosinophils (%) (Auto) 3.7 % (0.0-7.0) Basophils (%) (Auto) 0.8 % (0.0-2.0) Neutrophils # (Auto) 2.6 10 ^3/uL (1.6-8.6) Lymphocytes # (Auto) 1.7 10 ^3/uL (0.4-5.4) Monocytes # (Auto) 0.6 10 ^3/uL (0-1.3) Eosinophils # (Auto) 0.2 10 ^3/uL (0-0.8) Basophils # (Auto) 0 10 ^3/uL (0-0.2) Nucleated Red Blood Cells 0.1 % Sodium Level 139 mmol/L (136-145) Potassium Level 3.9 mmol/L (3.5-5.1) Chloride Level 107 mmol/L (98-107) Carbon Dioxide Level 25 mmol/L (20-31) Anion Gap 7 (5-15) Blood Urea Nitrogen 10 mg/dL (9-23) Creatinine 0.88 mg/dL (0.700-1.30) Glomerular Filtration Rate Calc 103 mL/min (>90) BUN/Creatinine Ratio 11.4 (10.0-20.0) Serum Glucose 103 mg/dL (74-106) Calcium Level 8.9 mg/dL (8.7-10.4) Total Bilirubin < 0.2 mg/dL (0.2-1.0) Aspartate Amino Transferase (AST) < 8 U/L (13-40) Alanine Aminotransferase (ALT) < 9 U/L (7-40) Alkaline Phosphatase 147 U/L (46-116) Total Protein 6.1 g/dL (5.7-8.2) Albumin 4.0 g/dL (3.2-4.8) Urine Color Light-yellow (Yellow) Urine Clarity Clear (Clear) Urine pH 7.5 (5.0-9.0) Urine Specific [place] 1.022 (1.001-1.035) Urine Protein Negative (Negative) Urine Ketones Negative (Negative) Urine Blood Negative /uL (Negative) Urine Nitrite Negative (Negative) Urine Bilirubin Negative (Negative) Urine Urobilinogen 3 mg/dL (Negative) Urine Leukocyte Esterase Negative /uL (Negative) Urine RBC 2 /hpf (0 - 3) Urine WBC 1 /hpf (0 - 3) Urine Squamous Epithelial Cells Few /hpf (<5) Urine Bacteria None seen /hpf (None Seen) Urine Glucose Normal mg/dL (Normal) Troponin I High Sensitivity 5 ng/L (</=54) Other Laboratory Tests 07/07/24 05:25 Brief Hx & Hospital Course: The patient is a 54-year-old male with past medical history of CVA, CHF, hyperlipidemia, DE, seizures, and hypertension who presented to [facility] ED with complaint of chest pain. Patient reports symptoms progressively get worse with left-sided chest pain, radiating to his left, back, associated with shortness of breaths, SOB at rest, shortness of breath with exertion, getting worse that prompted this visit. Patient was seen and evaluated in the ED, laboratory data shows WBC 4.8, hemoglobin 11.1, hematocrit 35.1, platelets 208, sodium 139, potassium 4.2, BUN 13, creatinine 0.94, glucose 110, troponin 4, blood pressure 132/78, heart rate 72, temperature 98.5 F, O2 saturation 97% on oxygen. Chest x-ray shows no acute cardiopulmonary disease, mild cardiomegaly. Patient took his own 324mg ASA prior to their arrival, please see medication orders section in the computer. On my assessment, patient denies chest pain at this moment, no headache, no dizziness, no diaphoresis, currently on oxygen, no nausea, no vomiting, no fever, no chills. Patient was admitted for further evaluation and medical management. Generalized weakness Acute myocardial ischemia Chest Pain CAD S/P 2V CABG and Multiple BHUPENDRA PCI to LAD HLD - statin HTN Presence of Dual Chamber PPM Chronic HFpEF Hx CVA with left sided residual weakness Paroxysmal Atrial Fibrillation pt was cleared by cardiology for discharge. discharged to home with self care Condition at Discharge: Stable Final Diagnosis/Problems List Generalized weakness Acute myocardial ischemia Discharge Disposition: Home Discharge Statement: "Patient was advised to return to the ER or call 911 if any headaches, dizziness, shortness of breath, chest pain, abdominal pain, bleeding, fevers, or worsening of medical condition. Patient was counseled about treatment plan, medications, possible side effects, patientverbalized understanding. All questions were answered to the best of my ability. This discharge took greater then 30 minutes in planning, reviewing documentation, counseling the patient, and discussing with other team members." ASSESSMENT ASSESSMENT Assessment Date of Service: Jul 07, 2024 Billing Provider: HOSSEIN MOISE DO Common Visit Codes: 94190-FYF/OBS DISCH DAY >30min HOSSEIN MOISE DO Jul 07, 2024 22:26
[2024-07-08] MEDS ORDERED: LISINOPRIL 20 MG TAB PO SCH (10:00)
[2024-07-08] MEDS ORDERED: FUROSEMIDE 20 MG TAB PO SCH (10:00)
== END 2024-07-07 13:10 | disposition left against medical advice (07) | DRG 203 ==
LOC: ER 18:51 → EDBD 18:51 → TELE 22:39 → TELE-E-ADS 07-07 02:18
PROVIDERS: ADMIT Internal Medicine; ATTEND Internal Medicine
DX: M94.0 Chondrocostal junction syndrome [Tietze] (principal); I51.3 Intracardiac thrombosis, not elsewhere classified; I11.0 Hypertensive heart disease with heart failure; I50.32 Chronic diastolic (congestive) heart failure; I69.354 Hemiplegia and hemiparesis following cerebral infarction affecting left non-dominant side; G40.909 Epilepsy, unspecified, not intractable, without status epilepticus; I48.0 Paroxysmal atrial fibrillation; E78.5 Hyperlipidemia, unspecified; I25.10 Atherosclerotic heart disease of native coronary artery without angina pectoris; R00.1 Bradycardia, unspecified; J44.9 Chronic obstructive pulmonary disease, unspecified; Z95.5 Presence of coronary angioplasty implant and graft; Z95.1 Presence of aortocoronary bypass graft; Z95.0 Presence of cardiac pacemaker; Z79.899 Other long term (current) drug therapy; Z79.01 Long term (current) use of anticoagulants; Z88.6 Allergy status to analgesic agent; Z88.1 Allergy status to other antibiotic agents; Z88.5 Allergy status to narcotic agent; Z88.0 Allergy status to penicillin; Z88.8 Allergy status to other drugs, medicaments and biological substances
CPT/HCPCS: 36415; 71045; 80048; 80053; 81001; 84484; 85025; 93005; 93306; G0378; J2405